=== PATIENT | female | born 1990 | race Caucasian/White ===

== ENCOUNTER 2016-12-15 18:41 | Emergency (ER) | payer SELFPAY ==
[~2016-12-15] VITALS: Ht 162.6 cm; Wt 63.0 kg
[2016-12-15 20:12] VITALS: Ht 162.6 cm; Wt 63.0 kg
[2016-12-15] MEDS ORDERED: CEPHALEXIN 500 MG CAP PO ONE (22:30)
[2016-12-15] MEDS ORDERED: TRIMETHOPRIM/SULFAMETHOX (DS) TAB PO ONE (22:30)
--- NOTE | 2016-12-15 23:33 | RADRPT ---
PROCEDURE: XR Left Wrist. CLINICAL INDICATION: Trauma. Pain. TECHNIQUE: AP, lateral and oblique views of the left wrist were performed. COMPARISON: No prior studies are available for comparison. FINDINGS: No acute fracture is identified. Joint relationships are maintained. Bone mineralization is within normal limits. Soft tissues are unremarkable. IMPRESSION: 1. No acute abnormality. RPTAT: HMVK .Abelardo Moreno MD, Date Time Electronically viewed and signed by .Abelardo Moreno MD, on 12/15/2016 23:32 .K/
[2016-12-15] MEDS ORDERED: IBUP-1542 PO (23:41)
[2016-12-15] MEDS ORDERED: CEPH-443 PO (23:41)
[2016-12-15] MEDS ORDERED: SULF1TAB31 PO (23:41)
--- NOTE | 2016-12-15 23:45 | ERD ---
ER Documentation Chief Complaint Date/Time DATE: 12/15/16 TIME: 23:42 Chief Complaint sp spider bite 2 days ago, skin area is swelling redness warm to touch HPI 26-year-old female patient with no significant past medical history presents the ED complaining of a insect bite that occurred to her left chau 2 days ago. States that it might have been a spider but she is unsure. She also injured her left wrist 2 weeks ago and it feels like a shock like pain. Rates the pain a 6 out of 10. Denies any head or neck injuries from the fall. Denies any loss of consciousness. States that she has been taking ibuprofen for pain. Denies any fever, chills, loss of sensation, loss of range of motion, numbness or tingling, weakness. ROS All systems reviewed and are negative except as per history of present illness. Medications Home Meds Active Scripts Ibuprofen* (Motrin*) 600 Mg Tab, 600 MG PO Q6, #30 TAB Prov:ISAC YOUNG PA-C 12/15/16 Cephalexin* (Keflex*) 500 Mg Capsule, 500 MG PO QID for 7 Days, CAP Prov:ISAC YOUNG PA-C 12/15/16 Sulfamethoxazole/Trimethoprim* (Bactrim Ds* Tablet) 1 Each Tablet, 1 TAB PO BID for 7 Days, #14 TAB Prov:ISAC YOUNG PA-C 12/15/16 Reported Medications [None] No Conflict Check 01/11/10 Allergies Allergies: Uncoded Allergies: NONE (Allergy, Mild, 01/11/10) PMhx/Soc Medical and Surgical Hx: pt denies Medical Hx, pt denies Surgical Hx History of Surgery: No Anesthesia Reaction: No Hx Neurological Disorder: No Hx Respiratory Disorders: No Hx Cardiac Disorders: No Hx Psychiatric Problems: No Hx Miscellaneous Medical Probl: No Hx Alcohol Use: No Hx Substance Use: No Hx Tobacco Use: No Smoking Status: Never smoker Physical Exam Vitals Vital Signs Date Time Temp Pulse Resp B/P Pulse Ox O2 Delivery O2 Flow Rate FiO2 12/15/16 20:12 97.7 91 20 124/83 100 Physical Exam Const: [id number]-[id number], well-nourished. In no acute distress. Head: Atraumatic, normocephalic Eyes: Normal Conjunctiva without injection ENT: Normal external ear, nose and mouth. Neck: Full range of motion. No meningismus. Resp: Clear to auscultation bilaterally. No wheezing, rhonchi, rales, or crackles. No accessory muscle use. No retractions. Cardio: Regular rate and rhythm, no murmurs Skin: No petechiae or rashes. 12 cm erythematous oval surrounding a punctate wound noted of the left calf. Slight warmth to touch. No fluctuance, induration, purulent discharge noted. Back: No midline tenderness. No CVA tenderness. Ext: No cyanosis, or edema. Cap refill less than 2 seconds. Distal pulses intact bilaterally. Tender to palpation of the left distal ulnar. No erythema , edema, warmth to touch, fluctuance, induration noted. Neur: Awake and alert. Normal gait and coordination. Muscle strength 5/5. Sensation intact bilaterally. Psych: Normal Mood and Affect Results 24 hrs Current Medications Medications (Trade) Dose Ordered Sig/Shu Route PRN Reason Start Time Stop Time Status Last Admin Dose Admin Trimethoprim/ Sulfamethoxazole (Bactrim (Ds)) 1 tab ONCE ONCE PO 12/15/16 22:30 12/15/16 22:31 DC 12/15/16 22:30 Cephalexin (Keflex) 500 mg ONCE ONCE PO 12/15/16 22:30 12/15/16 22:31 DC 12/15/16 22:30 Procedures/MDM This is a 26-year-old female patient with no significant past medical history presents to the ED complaining of a insect bite that got infected as well as a left wrist injury. Patient is nontoxic-appearing. Patient has normal vital signs. Left wrist x-ray was ordered to further evaluate patient. PROCEDURE: XR Left Wrist. CLINICAL INDICATION: Trauma. Pain. TECHNIQUE: AP, lateral and oblique views of the left wrist were performed. COMPARISON: No prior studies are available for comparison. FINDINGS: No acute fracture is identified. Joint relationships are maintained. Bone mineralization is within normal limits. Soft tissues are unremarkable. IMPRESSION: 1. No acute abnormality. Patient is placed in a left Velcro splint. Splint Assessment: Neurovascularly intact pre and post splint placement with good fit. Patient likely sustained a infected insect bite noted of the left calf. It was marked with a skin marker. Patient was instructed that infection spreads outside of the [place], to return to the ED sooner for any worsening symptoms. Patient was given first dose of Bactrim and Keflex here in the ED. Patient's extremity symptoms have stabilized while they have been evaluated in the department and are appropriate for outpatient follow up. No evidence of fractures, dislocations, compartment syndrome, neurologic injury, vascular injury, open joint, open fracture, tendon laceration, septic arthritis, osteomyelitis, DVT, foreign body, or other emergent conditions. Patient is afebrile. Low suspicion for sepsis. Wound check was recommended in 2 days. Keflex and Bactrim was prescribed to patient. Ibuprofen was prescribed for patient's pain. Instructed patient to return to the ED sooner for any worsening symptoms. Follow up with primary care physician or return to the ED in 2 days for a wound check. Patient's questions were answered. Patient understood and agreed with discharge plan. Departure Diagnosis: Primary Impression: Left wrist injury Encounter type: initial encounter Qualified Code: S69.92XA - Left wrist injury, initial encounter Additional Impression: Insect bite Encounter type: initial encounter Qualified Code: W57.XXXA - Insect bite, initial encounter Condition: Stable Patient Instructions: Wrist Sprain, Insect Bite Referrals: [facility] YOU HAVE RECEIVED A MEDICAL SCREENING EXAM AND THE RESULTS INDICATE THAT YOU DO NOT HAVE A CONDITION THAT REQUIRES URGENT TREATMENT IN THE EMERGENCY DEPARTMENT. FURTHER EVALUATION AND TREATMENT OF YOUR CONDITION CAN WAIT UNTIL YOU ARE SEEN IN YOUR DOCTORS OFFICE WITHIN THE NEXT 1-2 DAYS. IT IS YOUR RESPONSIBILITY TO MAKE AN APPOINTMENT FOR FOLOW-UP CARE. IF YOU HAVE A PRIMARY DOCTOR --you should call your primary doctor and schedule an appointment IF YOU DO NOT HAVE A PRIMARY DOCTOR YOU CAN CALL OUR PHYSICIAN REFERRAL HOTLINE AT IF YOU CAN NOT AFFORD TO SEE A PHYSICIAN YOU CAN CHOSE FROM THE FOLLOWING [facility] [address] [facility]. [facility] [address] [facility] [address] [facility] [facility] [address] [facility] [facility] [address]. [facility]. [address] [facility]. [facility] YOU HAVE RECEIVED A MEDICAL SCREENING EXAM AND THE RESULTS INDICATE THAT YOU DO NOT HAVE A CONDITION THAT REQUIRES URGENT TREATMENT IN THE EMERGENCY DEPARTMENT. FURTHER EVALUATION AND TREATMENT OF YOUR CONDITION CAN WAIT UNTIL YOU ARE SEEN IN YOUR DOCTORS OFFICE WITHIN THE NEXT 1-2 DAYS. IT IS YOUR RESPONSIBILITY TO MAKE AN APPOINTMENT FOR FOLOW-UP CARE. IF YOU HAVE A PRIMARY DOCTOR --you should call your primary doctor and schedule and appointment IF YOU DO NOT HAVE A PRIMARY DOCTOR YOU CAN CALL OUR PHYSICIAN REFERRAL HOTLINE AT . IF YOU CAN NOT AFFORD TO SEE A PHYSICIAN YOU CAN CHOSE FROM THE FOLLOWING [facility] INSTITUTIONS: [facility] [address] [place] [address] [facility] [address] [place] [address] [facility] [address] [place] [address] [facility] URGENT CARE/SPECIALTIES Additional Instructions: Follow up in 2 days in your clinic for wound check. FOLLOW UP WITH YOUR PRIMARY CARE PHYSICIAN TOMORROW.Return to this facility if you are not improving as expected. ISAC YOUNG PA-C Dec 15, 2016 23:45
== END 2016-12-16 00:07 | disposition home or self-care (01) ==
LOC: E/R 18:41 → FTE 12-16 00:07
DX: S69.92XA Unspecified injury of left wrist, hand and finger(s), initial encounter (principal); S80.862A Insect bite (nonvenomous), left lower leg, initial encounter; W57.XXXA Bitten or stung by nonvenomous insect and other nonvenomous arthropods, initial encounter; X58.XXXA Exposure to other specified factors, initial encounter; Y92.9 Unspecified place or not applicable